=== PATIENT | female | born 1950 | race Caucasian/White ===

== ENCOUNTER 2017-07-19 07:01 | Day surgery (SDC) | payer BC ==
[~2017-07-19] VITALS: Ht 292.1 cm; Wt 59.4 kg
[~2017-07-19 07:01] MED LIST: ALPR.5 PO; AMIT10 PO; AMIT25 PO; Advil200 M1 PO; BUDE32NIS; FAMO20 PO; Fosamax70 MG PO; LEVSOD125 PO; RANI150 PO
== END 2017-07-19 09:00 | disposition home or self-care (01) ==
LOC: ORSCMMR 07:01
PROVIDERS: Internal Medicine Gastroenterology
PROC: 0DJD8ZZ Inspection of Lower Intestinal Tract, Via Natural or Artificial Opening Endoscopic (ICD-10-PCS; principal; 2017-07-19 08:00)
DX: Z12.11 Encounter for screening for malignant neoplasm of colon (principal); E03.9 Hypothyroidism, unspecified; F41.9 Anxiety disorder, unspecified; K63.89 Other specified diseases of intestine; Z79.899 Other long term (current) drug therapy
CPT/HCPCS: J7120

== ENCOUNTER → 2022-10-28 | Outpatient (CLI) | payer BC | END | disposition home or self-care (01) | LOC: LAB 13:35 → LAB SHORT 13:35 | DX: R30.0 Dysuria (principal) | CPT/HCPCS: 87077; 87086; 87186 ==